=== PATIENT | female | born 1990 | race Caucasian/White ===

== ENCOUNTER 2020-07-02 17:35 | Emergency (ER) | payer OTHER ==
[~2020-07-02] VITALS: Ht 165.1 cm; Wt 96.6 kg
[2020-07-02 17:40] VITALS: BP 126/87
[2020-07-02 20:20] VITALS: BP 134/76
[2020-07-02 23:59] LABS: APPEARANCE,URINE CLEAR (CLEAR); BILIRUBIN,URINE NEGATIVE (NEGATIVE); BLOOD, URINE 1+ (NEGATIVE); COLOR,URINE YELLOW (YELLOW); LEUKOCYTE ESTERASE ,URINE NEGATIVE (NEGATIVE); NITRITE, URINE NEGATIVE (NEGATIVE); UGLUCOSE NEGATIVE (NEGATIVE)
[2020-07-03 00:20] LABS: RBC,URINE 0-5 /HPF (0-5); WBC,URINE 0-5 /HPF (0-5)
== END 2020-07-02 22:28 | disposition home or self-care (01) ==
LOC: MED 17:35
DX: R10.31 Right lower quadrant pain (principal); N83.201 Unspecified ovarian cyst, right side; Z90.89 Acquired absence of other organs
CPT/HCPCS: 76830; 81001; 81025; 87086; 99284; Q0092